=== PATIENT | male | born 1980 | race Caucasian/White ===

== ENCOUNTER → 2018-10-26 | Outpatient (CLI) | payer OTHER ==
--- NOTE | 2018-10-26 09:57 | REP ---
Clinical: Left foot pain Technique: AP, lateral, bilateral oblique views left foot . Findings: The osseous structures and joint spaces are intact and normal. There is no evidence for acute fracture or dislocation. Surrounding soft tissues are unremarkable. No subcutaneous emphysema or radiodense foreign body. Impression: Normal left foot series . No acute fracture or dislocation. Electronically Signed by Eliel Lo MD 10/26/2018 09:49 A
--- NOTE | 2018-10-26 09:57 | REP ---
Clinical: Pain . Technique: AP, lateral, bilateral oblique views left ankle . Findings: No acute fracture or dislocation. Skeletal structures and joint spaces are intact and normal. Ankle mortise appears stable. No subcutaneous emphysema or radiodense foreign body. Impression: Normal left ankle radiograph series. Electronically Signed by Eliel Lo MD 10/26/2018 09:48 A
== END ==
LOC: M RAD 08:52
PROVIDERS: ATTEND Surgery
DX: M25.572 Pain in left ankle and joints of left foot (principal)

== ENCOUNTER → 2019-04-26 | Outpatient (CLI) | payer OTHER ==
--- NOTE | 2019-04-27 08:21 | REP ---
Clinical: Paresthesia to the fourth and fifth digits Technique: AP, lateral, bilateral oblique views left hand . Findings: The osseous structures and joint spaces are intact and normal. There is no evidence for acute fracture or dislocation. Surrounding soft tissues are unremarkable. No subcutaneous emphysema or radiodense foreign body. Impression: Normal left hand series. No acute pathology appreciated by radiographic evaluation. Electronically Signed by Eliel Lo MD 04/27/2019 08:13 A
--- NOTE | 2019-04-27 08:22 | REP ---
Clinical: Pain. Paresthesia. Technique: AP, lateral, bilateral oblique views left wrist . Findings: The carpal bones, surrounding osseous structures, soft tissues, and joint spaces are normal. There is no evidence for acute fracture or dislocation. No subcutaneous emphysema or radiodense foreign body. Impression: Normal wrist series. No acute fracture or dislocation Electronically Signed by Eliel Lo MD 04/27/2019 08:14 A
--- NOTE | 2019-04-27 08:23 | REP ---
Clinical: Pain. Ulnar nerve impairment. Technique: AP, lateral, bilateral oblique views of the left elbow. Findings: No acute fracture or dislocation is appreciated. Joint spaces and surrounding soft tissues appear normal. Lateral view demonstrates normal positioning to the anterior and posterior fat pads without evidence for effusion/hemarthrosis. No subcutaneous emphysema or foreign body identified. Impression: Normal left elbow radiographs. Electronically Signed by Eliel Lo MD 04/27/2019 08:15 A
== END ==
LOC: M RAD 09:16
PROVIDERS: ATTEND Surgery
DX: R20.2 Paresthesia of skin (principal)